=== PATIENT | male | born 1985 | race Caucasian/White ===

== ENCOUNTER 2017-04-18 11:15 | Day surgery (SDC) | payer BC ==
[~2017-04-18] VITALS: Ht 182.9 cm; Wt 90.3 kg
[2017-04-18] VITALS (13 sets, daily range): BP systolic 113–133; BP diastolic 67–75
[~2017-04-18 11:15] MED LIST: PROPECIA1 MG PO; TRAZODONE HCL50 MG ORAL; XANAX0.5 MG ORAL
--- NOTE | 2017-04-18 12:47 | Pre-Procedure Note/Attestation ---
Pre-Procedure Note/Attestation Complete Prior to Procedure Planned Procedure: left Procedure Narrative: Left knee ACL reconstruction with allograft Indications for Procedure Pre-Operative Diagnosis: Left knee ACL tear Attestation I attest that I discussed the nature of the procedure; its benefits; risks and complications; and alternatives (and the risks and benefits of such alternatives ), prior to the procedure, with the patient (or the patient's legal patient care representative). I attest that, if there was a reasonable possibility of needing a blood transfusion, the patient (or the patient's legal patient care representative) was given the [facility] standardized written summary, pursuant to the Jerry Dunstan Blood Safety Act ([place] Health and Safety Code # 1645, as amended). I attest that I re-evaluated the patient just prior to the surgery and that there has been no change in the patient's H&P, except as documented below: CHERY WANG Apr 18, 2017 12:47
[2017-04-18] MEDS ORDERED: Bupivacaine 0.25% Inj 30ml INJ ONE (13:04)
[2017-04-18] MEDS ORDERED: EPINEPHrine 1mg/1ml Amp ONE (13:04)
[2017-04-18] MEDS ORDERED: Ropivacaine 5mg/ml Vial 30ml INJ ONE (13:21)
[2017-04-18] MEDS ORDERED: Midazolam 2mg/2ml Inj ONE (13:30)
[2017-04-18] MEDS ORDERED: NS Irrig 4000ml IRRIG ONE (13:30)
[2017-04-18] MEDS ORDERED: LR 1000ml ONE (13:30)
[2017-04-18] MEDS ORDERED: Sterile Water Irrig 1000ml IRRIG ONE (13:30)
[2017-04-18] MEDS ORDERED: Lidocaine 1% MPF 10mg/ml 5ml ONE (13:30)
[2017-04-18] MEDS ORDERED: Alfentanil 2ml Inj ONE (13:30)
[2017-04-18] MEDS ORDERED: Dexamethasone 4mg/ml vial ONE (13:30)
[2017-04-18] MEDS ORDERED: fentaNYL 100 mcg/2 mL IV ONE (13:30)
[2017-04-18] MEDS ORDERED: Propofol 200mg/20ml IV ONE (13:30)
[2017-04-18] MEDS ORDERED: LR 1000ml 1,000 ML IVLG SCH (13:55)
[2017-04-18] MEDS ORDERED: fentaNYL 100 mcg/2 mL IV PRN (14:00)
[2017-04-18] MEDS ORDERED: Atropine Inj 1mg/10ml Syr IV PRN (14:00)
[2017-04-18] MEDS ORDERED: Ketorolac 30mg Inj IV PRN (14:00)
[2017-04-18] MEDS ORDERED: HYDROcodone/Acetamin 7.5/325 tab ORAL PRN (14:00)
[2017-04-18] MEDS ORDERED: Norco 5mg/325mg tab ORAL PRN ×2 (14:00→19:01)
[2017-04-18] MEDS ORDERED: Labetalol 5mg/ml 20ml vial IV PRN (14:00)
[2017-04-18] MEDS ORDERED: oxyCODONE HCL/Acetaminophen 5/325mg ORAL PRN (14:00)
[2017-04-18] MEDS ORDERED: Hydromorphone 0.5mg/0.5ml inj IVP PRN (14:00)
[2017-04-18] MEDS ORDERED: Ketorolac 60mg Inj IV PRN (14:00)
[2017-04-18] MEDS ORDERED: DiphenhydrAMINE 50mg/ml Inj IVP PRN (14:00)
[2017-04-18] MEDS ORDERED: Midazolam 2mg/2ml Inj IVP PRN (14:00)
[2017-04-18] MEDS ORDERED: LORazepam Inj 2mg/ml 1ml IV PRN (14:00)
[2017-04-18] MEDS ORDERED: Acetaminophen (Non formulary) 100 ML IV ONE (14:00)
--- NOTE | 2017-04-18 14:08 | Anethesia Preoperative Eval ---
Anesthesia Pre-op PMH/ROS General Date of Evaluation: Apr 18, 2017 Time of Evaluation: 13:25 Anesthesiologist: Deedee ASA Score: ASA 1 Mallampati Score Class I : Soft palate, uvula, fauces, pillars visible Class II: Soft palate, uvula, fauces visible Class III: Soft palate, base of uvula visible Class IV: Only hard plate visible Mallampati Classification: Class II Surgeon: Sourav Diagnosis: L Knee Pain Surgical Procedure: L Knee ACL Repair Anesthesia History: none Family History: no anesthesia problems Allergies: Coded Allergies: POLLEN EXTRACTS (Verified Allergy, Intermediate, watery eyes; sneezing, 04/17/17) Medications: see eMAR Past Medical History PSxH Narrative: Septum Nose SX Anesthesia Pre-op Phys. Exam Physician Exam Last Vital Signs Date Time Temp Pulse Resp B/P (MAP) Pulse Ox O2 Delivery O2 Flow Rate FiO2 04/18/17 12:22 98.4 56 18 113/67 98 Room Air Constitutional: NAD Neurologic: CN 2-12 intact Cardiovascular: RRR Respiratory: CTA Gastrointestinal: S/NT/ND Airway Exam Mallampati Score: Class II MO: limited ROM: full Teeth: intact Anesthesia Pre-op A/P Risk Assessment & Plan Assessment: ASA 1 Plan: GA, L Adductor/Femoral Block, BIS Status Change Before Surgery: No Pre-Antibiotics Dru Grams Ancef IV Given Within 1 Hr of Incision: Yes Time Given: 13:41 Yoav Mark MD Apr 18, 2017 14:07
--- NOTE | 2017-04-18 14:16 | Immediate Post-Op Evaluation ---
Immediate Post-Op Evalulation Immediate Post-Op Evalulation Procedure: L Leg ACL Repair Date of Evaluation: Apr 18, 2017 Time of Evaluation: 15:45 IV Fluids: 1000 LR Blood Products: 0 Estimated Blood Loss: 100 Urinary Output: 0 Blood Pressure Systolic: 127 Blood Pressure Diastolic: 80 Pulse Rate: 81 Respiratory Rate: 16 O2 Sat by Pulse Oximetry: 100 Temperature (Fahrenheit): 98.8 Pain Score (1-10): 2 Nausea: No Vomiting: No Complications 0 Patient Status: awake, reacts, patent, extubated, none Hydration Status: adequate Dru Grams Ancef IV Given Within 1 Hr of Incision: Yes Time Given: 13:41 Yoav Mark MD Apr 18, 2017 14:16
--- NOTE | 2017-04-18 14:17 | 48 Hour Post Anesthesia Eval ---
Post Anesthesia Evaluation Procedure: L Leg ACL Repair Date of Evaluation: Apr 18, 2017 Time of Evaluation: 17:53 Blood Pressure Systolic: 126 0: 74 Pulse Rate: 77 Respiratory Rate: 18 Temperature (Fahrenheit): 98.6 O2 Sat by Pulse Oximetry: 100 Airway: patent Nausea: No Vomiting: No Pain Intensity: 2 Hydration Status: adequate Cardiopulmonary Status: Stable Mental Status/LOC: patient returned to baseline Follow-up Care/Observations: 0 Post-Anesthesia Complications: 0 Follow-up care needed: ready to discharge Yoav Mark MD Apr 18, 2017 14:17
[2017-04-18] MEDS ORDERED: HYDROmorphone 1mg/ml Carpuject SUBQ PRN (19:01)
[2017-04-18] MEDS ORDERED: Tylenol #3 tab (300mg/30mg) ORAL PRN (19:01)
[2017-04-18] MEDS ORDERED: D5 1/2NS 1,000 ML IV SCH (19:01)
--- NOTE | 2017-04-19 01:30 | Operative Note - Dictated ---
DATE OF OPERATION: 04/18/2017 SURGEON: Driss Benjamin M.D. THREE DIMENSIONAL MAP MODELER: None. ANESTHESIA: General plus regional plus local. COMPLICATIONS: None. ANTIBIOTICS: Ancef. PREOPERATIVE DIAGNOSIS: Left anterior cruciate ligament tear. POSTOPERATIVE DIAGNOSIS: Left anterior cruciate ligament tear. PROCEDURE PERFORMED: Left knee anterior cruciate ligament allograft reconstruction using anterior tibialis with 10 mm femoral AperFix fixation and 30 x 11 mm tibial Jasmine screw interference fixation. TOURNIQUET TIME: Zero. BACKGROUND: The patient sustained an ACL rupture. All risks, benefits, and alternatives to surgical intervention were discussed in great detail. Risks included, but were not limited to, bleeding, infection, neurovascular injury, need for additional surgical intervention, failure of pain relief, arthrofibrosis, complications of anesthesia, blood clots, stroke, heart attack, and potentially . He understood these risks, amongst others inclusive of re-rupture, and consent was signed. PROCEDURE IN DETAIL: The patient was brought into the operating room, placed supine on the operating table. The left lower extremity was correctly verified for surgical site, and prepped and draped in standard sterile fashion. Anesthesia performed regional nerve block and general anesthesia was induced. Two grams of Ancef were given. Examination under anesthesia revealed symmetric range of motion with the contralateral side with 1+ Sourav and 1+ pivot shift compared to trace and physiologic on the right. Anterolateral and anteromedial portals were marked and injected with 20 mL of 0.25% Marcaine with epinephrine. A diagnostic arthroscopy was then undertaken. It revealed the followin. Normal suprapatellar pouch. 2. Normal patellofemoral articulation. 3. Normal medial gutter. 4. Normal lateral gutter. 5. Normal lateral compartment. 6. Normal medial compartment. 7. Normal medial meniscus. 8. Normal lateral meniscus. 9. Normal PCL. 10. Ruptured ACL from the femoral attachment. The menisci were tested with a probe and found to be stable without evidence of tear. The remnant ACL was removed with using a radiofrequency device. Both the tibial attachment and femoral origin were clearly identified. The [id number] position on the femur was cleared visually. The allograft was prepared on the back table and placed on 15 pounds of tension for 15 minutes. It measured 9 mm wide. A 10 mm AperFix device was therefore utilized. Using a tibial guide, a 10 mm tunnel was drilled, and an [id number] position was clearly identified leaving a 2 mm posterior ridge. A 31 mm femoral tunnel was drilled to accommodate the AperFix device. Radiography confirmed no cortical embarrassment in neither bone tunnel. All fluid and debris were evacuated from both bone tunnels. After the AperFix device was loaded to the graft, it was secured into position under direct visualization. It was fully seated and then deployed. With appropriate tension, the tibial interference screw was then secured into position. Throughout full range of motion, isometry was excellent on the implanted graft. There was excellent tension. In full extension, there was no impingement in the notch. Throughout a full range of motion, there was no impingement along either condyle. All fluid and debris were evacuated from the knee. A 10 mL of 0.25% Marcaine with epinephrine were injected. The wounds were copiously irrigated and reapproximated using 4-0 Monocryl in subcuticular fashion. Steri-Strips were used over Mastisol. Dry sterile dressing was applied. A compressive stocking was fitted. There were no complications. I attest that I performed the entire operation. An immobilizer was secured into position. He was taken to recovery room in good condition. Driss Benjamin M.D. DR: MADISON JOB#: [id number] CC:
== END 2017-04-18 18:00 | disposition home or self-care (01) ==
LOC: SUR 11:15
DX: S83.512A Sprain of anterior cruciate ligament of left knee, initial encounter (principal); X58.XXXA Exposure to other specified factors, initial encounter; Y93.9 Activity, unspecified; Y92.9 Unspecified place or not applicable; Z91.048 Other nonmedicinal substance allergy status
CPT/HCPCS: 29888; C1713; J0171; J0690; J1100; J2250; J2405; J2704; J2795; J3010; J3490; J7120; 94003; 94150